=== PATIENT | female | born 1960 | race Caucasian/White ===

== ENCOUNTER 2024-05-17 11:00 | Emergency (ER) | payer BC, SELFPAY ==
[2024-05-17 11:04] VITALS: BP 169/92
[2024-05-17 11:21] VITALS: BMI 31.1
[2024-05-17 11:41] LABS: Urine Albumin Negative (Neg - Trace); Urine Bilirubin Negative (Negative); Urine Character Clear (Clear); Urine Color Yellow; Urine Glucose Negative (Negative); Urine Ketone Negative (Negative); Urine Leukocyte Trace (Negative); Urine Nitrite Negative (Negative); Urine Occult Blood Negative (Negative); Urine Urobilinogen Negative (Neg - 1+); Urine pH 6.5 (5.0-9.0)
--- NOTE | 2024-05-17 12:14 | ED.GENMED ---
History of Present Illness
General
Chief Complaint: Swelling
Source: patient
Exam Limitations: none
Time Seen by Provider: 05/17/24 12:05
History of Present Illness
History of Present Illness:
63-year-old female with history remotely of Hodgkin's lymphoma and more recent abdominal surgery presents with redness swelling and pain to the left antecubital area starting 2 days ago. She thinks she had an IV or blood draw on this arm 5 weeks
ago when she had her surgery for her abdomen. She denies chest pain or shortness of breath. She has had blood clots in the past during her lymphoma treatment as well as when she was . She denies any leg swelling or calf pain. She also
notes urinary frequency and urgency over the past several days. She denies a fever. No other complaints
Past History
Past History
ED Past Medical History: GERD
ED Past Surgical History: None
Social History
Tobacco: Non-smoker
Personal:
Living: with family
Phy Exam
Physical Exam
Physical Exam:
General: Well-appearing female no acute respiratory distress
HEENT: Normocephalic atraumatic
Heart: Regular rate and rhythm no murmurs
Lungs: Clear no wheeze
Skin: Erythema with some induration noted over the anterior left elbow in the antecubital area. Lightly tender.
Musculoskeletal exam: Good range of motion left elbow.
Vascular: 2+ radial and ulnar pulses left
Scores
Heart Failure Risk
Heart Failure Risk Score: Not Applicable
Course
Orders/Labs/Results
Orders:
Orders
05/17/24 11:24
Urinalysis Reflex To Culture Urgent
Date Specimen was Collected: 05/17/24
Time Specimen was Collected: 11:23
Urine Microscopic Reflex Cult Urgent
Urine Culture Urgent
TOD Source: U
Specimen Description:
Date Specimen was Collected: 05/17/24
Time Specimen was Collected: 11:23
05/17/24 12:13
Venous Doppler Upr Ext Left [US Periph Venous UPPER Ext LT] Urgent
Comment:
Reason For Exam: swelling, left antecubital area
Abnormal Lab Results
05/17/24
11:24
Leukocyte Esterase Rfl Trace A
(Negative)
Urine WBC (Reflex) 11-15 A /HPF
(0-5)
Urine Bacteria (Reflex) Few A
(Negative)
Vital Signs
Initial and Last Documented VS:
Initial Vital Signs
Temp Pulse Resp BP Pulse Ox
99.1 F 70 16 169/92 98
05/17/24 11:04 05/17/24 11:04 05/17/24 11:04 05/17/24 11:04 05/17/24 11:04
Last Documented Vital Signs
Temp Pulse Resp BP Pulse Ox
99.1 F 70 16 169/92 98
05/17/24 11:04 05/17/24 11:04 05/17/24 11:04 05/17/24 11:04 05/17/24 11:04
MDM/Problems Addressed
Differential Diagnosis Includes:
Swelling and redness anterior left elbow. Consider superficial phlebitis versus DVT versus cellulitis versus abscess. Venous ultrasound pending
Problem #2 includes urinary frequency and urgency. Question UTI versus cystitis. Urinalysis pending
*Critical Care Note
Total Time (30-74mins, 75-104mins- exclusive of procedures): Not Applicable
Update Note
Update Note:
Ultrasound demonstrates superficial thrombophlebitis of the left arm. Will treat this with warm compresses and NSAIDs. No indication for anticoagulant otherwise. Urine microscopic analysis does demonstrate possible UTI. Will cover with [employer].
Able for discharge
ED Attending Note
-
Portions of this chart may have been created with voice recognition software.� Occasional wrong word or��sound alike� substitutions may have occurred due to the inherent limitations of voice recognition software.
Discharge Plan
Departure
Patient Disposition: Home (Routine Discharge)
Date of Disposition: 05/17/24
Time of Disposition: 13:29
Patient with high blood pressure during this ER visit?: No
Discharge Problem:
Superficial thrombophlebitis, UTI (urinary tract infection)
Prescriptions:
New
cefdinir 300 mg capsule
300 mg PO BID Qty: 14 0RF
No Action
bupropion HCl 100 MG tablet
300 mg PO DAILY
geriatric multivitamin-min 1 CAP capsule
1 cap PO DAILY
escitalopram oxalate 10 MG tablet
20 mg PO DAILY
levomefolate calcium [Deplin] 7.5 MG tablet
15 mg PO DAILY
clonazepam 0.5 MG tablet
0.5 mg PO BID
pantoprazole 40 MG tablet,delayed release (DR/EC)
40 mg PO DAILY
eszopiclone [Lunesta] 2 MG tablet
2 mg PO PRN PRN (Reason: prn)
quetiapine [Seroquel XR] 50 MG tablet extended release 24 hr
2 tab PO DAILY
hydrocodone-acetaminophen [Vicodin] 1 EACH tablet
1 ea PO Q6HPRN PRN (Reason: pain) Qty: 14 0RF
azithromycin 250 MG tablet
250 mg PO DAILY Qty: 6 0RF
Referrals:
Yimi Sorto MD [Family Provider] -
Activity Restrictions/Additional Instructions:
There is no deep clot in your arm. Treat this with warm compresses and anti-inflammatories. Urinalysis does suggest possible UTI. Take antibiotic as directed. Return if worse otherwise follow-up with family doctor
Interventions
Interventions:
*Risk Screen - Suicide Last Done: 05/17/24 11:04
*General Assessment Last Done: 05/17/24 11:04
*ED COVID-19 Vaccine History Last Done: 05/17/24 11:04
ED- Cardiac Assessment Last Done: 05/17/24 11:22
ED- Pulmonary Assessment Last Done: 05/17/24 11:22
ED-Skin Assessment Last Done: 05/17/24 11:22
Discharge Date and Time
Print Language: PERSIAN
[2024-05-17 12:29] LABS: Urine Bacteria Few (Negative); Urine Red Blood Cell None Seen /HPF (0-2)
[2024-05-17 13:48] VITALS: BP 158/70
== END 2024-05-17 13:50 | disposition home or self-care (01) ==
LOC: EMR 11:00
PROVIDERS: EMERGENCY PHYSICIAN Student in an Organized Health Care Education/Training Program; FAMILY PHYSICIAN Family Medicine
DX: T81.72XA Complication of vein following a procedure, not elsewhere classified, initial encounter (principal); I80.9 Phlebitis and thrombophlebitis of unspecified site; M79.602 Pain in left arm; Y83.8 Other surgical procedures as the cause of abnormal reaction of the patient, or of later complication, without mention of misadventure at the time of the procedure; N39.0 Urinary tract infection, site not specified; K21.9 Gastro-esophageal reflux disease without esophagitis; Z85.71 Personal history of Hodgkin lymphoma; Z86.718 Personal history of other venous thrombosis and embolism; Z91.041 Radiographic dye allergy status
CPT/HCPCS: 99284; 81003; 81015; 87086; 93971

== ENCOUNTER 2024-05-21 16:56 | Emergency (ER) | payer BC, SELFPAY ==
[2024-05-21 16:59] VITALS: BP 183/101
--- NOTE | 2024-05-21 17:28 | ED.GENMED ---
History of Present Illness
General
Chief Complaint: Skin Problem
Source: patient
Time Seen by Provider: 05/21/24 17:16
History of Present Illness
History of Present Illness:
63yoF with a history of hypertension, depression, and remote history of Hodgkin's lymphoma presenting for evaluation of left arm redness. Patient had an abdominal surgery on 04/09/24 at [facility] in which she had a Morgangi hernia repair. She had an IV
placed in her L forearm during her hospitalization. She was seen in the ED 4 days ago for L arm redness and swelling. Venous duplex revealed 'Superficial thrombosis of the left basilic and cephalic veins.' She reports only having redness in the
antecubital fossa at that time. Redness has been gradually moving distally in her forearm since her last ED visit. She is currently on cefdinir for a UTI. She denies any fevers or chills. She called her PCP today and she was told to go to the ED for
evaluation.
Past History
Past History
ED Past Medical History: GERD
ED Past Surgical History: None
Social History
Tobacco: Non-smoker
Personal:
Living: with family
Phy Exam
General Physical Exam
General Presentation: well appearing and no apparent distress
General age: appears stated age
General Skin: warm and dry
General Habitus: normal
General Mental: alert
ENT Exam
ENT Exam: normocephalic
Pulmonary Exam
Pulmonary Exam: no respiratory distress
Mayer Coma Scale
Eye Opening: Spontaneous
Verbal Response: Oriented
Motor Response: Obeys Commands
GCS Total Score: 15
Musculoskeletal Exam
Musculoskeletal Exam: other (Superficial red streaking in the L forearm along the course of a vein with mild tenderness consistent with phlebitis. No overt signs of infection. )
Skin Exam
Skin Exam: warm/dry
Psychiatric Exam
Psychiatric Exam: normal mood/affect
Course
Orders/Labs/Results
Orders:
Orders
05/21/24 17:26
Venous Doppler Upr Ext Left [US Periph Venous UPPER Ext LT] Urgent
Comment:
Reason For Exam: Spreading L forearm redness
05/21/24 17:34
Complete Blood Count/With Diff Urgent
Comprehensive Metabolic Panel Urgent
Abnormal Lab Results
05/21/24
17:34
Hct 35.6 L %
(37.0-47.0)
Lymphocytes % 16.5 L %
(20.5-51.1)
05/21/24 17:34
05/21/24 17:34
Vital Signs
Initial and Last Documented VS:
Initial Vital Signs
Temp Pulse Resp BP Pulse Ox
98.1 F 72 16 183/101 100
05/21/24 16:59 05/21/24 16:59 05/21/24 16:59 05/21/24 16:59 05/21/24 16:59
Last Documented Vital Signs
Temp Pulse Resp BP Pulse Ox
98.1 F 65 16 159/88 97
05/21/24 16:59 05/21/24 19:35 05/21/24 19:35 05/21/24 19:35 05/21/24 19:35
MDM/Problems Addressed
Differential Diagnosis Includes:
63yoF here with L forearm redness and swelling. Seen in the ED 4 days ago and diagnosed with superficial thrombophlebitis. Patient is here because the redness is spreading distally. No f/c. She is hypertensive on arrival with otherwise normal
vitals. There is red streaking localized to the forearm on exam consistent with phlebitis. LUE is neurovascularly intact. Differential diagnosis includes but is not limited to: superficial thrombophlebitis, DVT, cellulitis
Initial ED plan: Check CBC, CMP, and repeat venous duplex.
*Critical Care Note
Total Time (30-74mins, 75-104mins- exclusive of procedures): Not Applicable
Update Note
Update Note:
White count is normal. Remainder of labs unremarkable. Venous duplex shows acute occlusive thrombus throughout L cephalic vein in the forearm which is new from prior imaging. There has been an interval decrease in thrombosis throughout the L basilic
vein with only mild nonocclusive thrombosis remaining in the AC region. D/w Dr. Fitzpatrick. There is no propagation of clot proximally and no evidence of DVT. Patient was advised to start a baby aspirin daily. Supportive care discussed including warm
compresses and PRN NSAIDs. Advised close f/u with PCP and ED return precautions discussed. Patient expressed understanding and is agreeable to plan. Patient discharged in stable condition.
ED Attending Note
-
Portions of this chart may have been created with voice recognition software.� Occasional wrong word or��sound alike� substitutions may have occurred due to the inherent limitations of voice recognition software.
Discharge Plan
Departure
Patient Disposition: Home (Routine Discharge)
Date of Disposition: 05/21/24
Time of Disposition: 19:20
Patient with high blood pressure during this ER visit?: Yes
Discharge Problem:
Superficial thrombophlebitis of left upper extremity
Instructions: Superficial vein phlebitis and thrombosis
Prescriptions:
No Action
bupropion HCl 100 MG tablet
300 mg PO DAILY
geriatric multivitamin-min 1 CAP capsule
1 cap PO DAILY
escitalopram oxalate 10 MG tablet
20 mg PO DAILY
levomefolate calcium [Deplin] 7.5 MG tablet
15 mg PO DAILY
clonazepam 0.5 MG tablet
0.5 mg PO BID
pantoprazole 40 MG tablet,delayed release (DR/EC)
40 mg PO DAILY
eszopiclone [Lunesta] 2 MG tablet
2 mg PO PRN PRN (Reason: prn)
quetiapine [Seroquel XR] 50 MG tablet extended release 24 hr
2 tab PO DAILY
hydrocodone-acetaminophen [Vicodin] 1 EACH tablet
1 ea PO Q6HPRN PRN (Reason: pain) Qty: 14 0RF
azithromycin 250 MG tablet
250 mg PO DAILY Qty: 6 0RF
cefdinir 300 mg capsule
300 mg PO BID Qty: 14 0RF
Referrals:
Yimi Sorto MD [Family Provider] -
Activity Restrictions/Additional Instructions:
Start taking a baby aspirin daily. Take ibuprofen as needed for pain. Apply warm compresses 4-6x daily.
Please follow-up with your family doctor in 3-4 days. Return to the ER with any worsening symptoms, fevers, or if the redness spreads up the arm.
Interventions
Interventions:
*Risk Screen - Suicide Last Done: 05/21/24 16:59
*General Assessment Last Done: 05/21/24 17:05
*Neglect/Abuse Screening Last Done: 05/21/24 17:05
ED- Fall Risk Assessment Last Done: 05/21/24 19:37
*ED COVID-19 Vaccine History Last Done: 05/21/24 17:05
*Nursing Disposition Last Done: 05/21/24 19:37
ED-Skin Assessment Last Done: 05/21/24 17:05
Discharge Date and Time
Discharge Date/Time: 05/21/24 19:38
Print Language: BAHAMIAN
[2024-05-21 17:51] LABS: % Basophils 0.5 % (0-2); % Eosinophils 0.4 % (0-6); % Immature Granulocytes 0.3 % (0-0.5); % Lymphocytes 16.5 % (20.5-51.1); % Monocytes 7.3 % (1.7-9.3); Absolute Lymphocytes 1.3 10^3/uL (1.2-3.4); Absolute Monocytes 0.6 10^3/uL (0.1-0.6); Absolute Neutrophils 5.7 10^3/uL (1.4-6.5); Hematocrit 35.6 % (37.0-47.0); Hemoglobin 12.7 g/dL (12.0-16.0); Mean Corp Hgb Conc. 35.7 g/dL (33.0-37.0); Mean Corpuscular Hgb 29.4 pg (27.0-31.0); Mean Corpuscular Volume 82.4 fL (81.0-99.0); Mean Platelet Volume 9.1 fL (7.4-10.4); Nucleated Red Blood Cells % 0 %; Platelet Count 270 10^3/uL (130-400); Red Blood Cell Count 4.32 10^6/uL (4.20-5.40); Red Cell Dist. Width 13.2 % (11.5-14.5); White Blood Cell Count 7.6 10^3/uL (4.8-10.8)
[2024-05-21 18:06] LABS: ALT (SGPT) 21 U/L (0-35); AST (SGOT) 23 U/L (14-36); Albumin 4.1 g/dl (3.5-5.0); Alkaline Phosphatase 85 U/L (38-126); Blood Urea Nitrogen 16 mg/dl (7-17); Calcium 9.3 mg/dl (8.4-10.2); Carbon Dioxide 23 mmol/L (22-30); Chloride 99 mmol/L (98-107); Glucose 90 mg/dl (70-99); Potassium 4.3 mmol/L (3.5-5.1); Sodium 135 mmol/L (135-145); Total Bilirubin 0.4 mg/dl (0.2-1.3); Total Protein 6.4 g/dl (6.3-8.2); eGFR > 60.00
[2024-05-21 19:35] VITALS: BP 159/88
== END 2024-05-21 19:38 | disposition home or self-care (01) ==
LOC: EMR 16:56
PROVIDERS: Physician Assistant; EMERGENCY PHYSICIAN Student in an Organized Health Care Education/Training Program; FAMILY PHYSICIAN Family Medicine
DX: I80.8 Phlebitis and thrombophlebitis of other sites (principal); I10 Essential (primary) hypertension; F32.A Depression, unspecified; K21.9 Gastro-esophageal reflux disease without esophagitis; Z79.2 Long term (current) use of antibiotics; Z85.71 Personal history of Hodgkin lymphoma
CPT/HCPCS: 99284; 80053; 85025; 93971

== ENCOUNTER 2024-11-17 06:29 | Day surgery (SDC) | payer BC, SELFPAY | END 2024-11-17 14:59 | disposition home or self-care (01) | LOC: GI 06:29 | PROVIDERS: ATTENDING PHYSICIAN Internal Medicine Gastroenterology | DX: R10.13 Epigastric pain (principal); R63.4 Abnormal weight loss; K44.9 Diaphragmatic hernia without obstruction or gangrene; K31.7 Polyp of stomach and duodenum; K29.70 Gastritis, unspecified, without bleeding; K31.89 Other diseases of stomach and duodenum | CPT/HCPCS: 43239; 88305; 88342 ==

== ENCOUNTER → 2024-11-30 11:33 | Outpatient (REF) | payer BC, SELFPAY | LOC: HWRAD 11:33 | PROVIDERS: ATTENDING PHYSICIAN Nurse Practitioner Family | DX: R10.10 Upper abdominal pain, unspecified (principal) | CPT/HCPCS: 76700 ==

== ENCOUNTER 2025-02-02 06:19 | Day surgery (SDC) | payer BC, SELFPAY | END 2025-02-02 10:13 | disposition home or self-care (01) | LOC: GI 06:19 | PROVIDERS: ATTENDING PHYSICIAN Internal Medicine Gastroenterology | DX: Z12.11 Encounter for screening for malignant neoplasm of colon (principal); D12.3 Benign neoplasm of transverse colon; K57.30 Diverticulosis of large intestine without perforation or abscess without bleeding; K64.8 Other hemorrhoids | CPT/HCPCS: 45385; 88305 ==